=== PATIENT | male | born 1965 | race African-American/Black ===

== ENCOUNTER 2020-03-28 14:54 | Inpatient (IN) | payer OTHER, MEDICAID ==
[~2020-03-28] VITALS: Ht 162.6 cm; Wt 72.4 kg
[~2020-03-28 14:54] MED LIST: AMLO10TA4 PO; ATOR20TA PO; ATOR40TA PO; CLON0.2T PO; DULO60CA6 PO; LABE200T24 PO; LISI20TA PO; OMEP40CA45 PO; TAMS0.4C97 PO
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
[2020-03-28 15:44] LABS: BASO # 0.1 x10^3/uL (0.0-0.2); BASO % 1 % (0-3); EOS % 0 % (0-3); HEMATOCRIT 47.2 % (39.0-53.0); HEMOGLOBIN 16.7 g/dL (13.0-17.5); LYMPH # 1.1 x10^3/uL (1.0-4.8); LYMPH % 16 % (24-48); MEAN CORPUSCULAR HEMOGLOBIN 33 pg (25-35); MEAN CORPUSCULAR HGB CONC 35 g/dL (31-37); MEAN CORPUSCULAR VOLUME 94 fL (79-100); MONO # 0.7 x10^3/uL (0.0-1.1); MONO % 10 % (0-9); NEUT % 73 % (31-73); PLATELET COUNT 243 x10^3/uL (140-400); RED BLOOD COUNT 5.03 x10^6/uL (4.30-5.70); RED CELL DISTRIBUTION WIDTH 13.9 % (11.5-14.5); WHITE BLOOD COUNT 6.8 x10^3/uL (4.0-11.0)
--- NOTE | 2020-03-28 15:56 | RAD ---
CHEST AP ONLY Clinical indications: Seizure. COMPARISON: June 24, 2017. Findings: No acute lung infiltrate or pleural effusion or pulmonary edema or lung mass or pneumothorax is seen. The heart size, pulmonary vasculature, mediastinum and both ranulfo are unremarkable. Old healed right ninth rib fracture is seen. Impression: No acute radiographic abnormality is seen. Electronically signed by: Hugo Bush MD (03/28/2020 3:53 PM) [id number]
--- NOTE | 2020-03-28 15:57 | EKG ---
[facility] [address] [place] [address] Test Date: 2020-03-28 Test Time: 15:36:44 Pat Name: ARTHUR VSAQUEZ Department: Room: Gender: M Ethics Instructor: : 1965 Requested By: RADHA CARDOSO Order Number: [id number] Reading MD: Measurements Intervals [place] Rate: 92 P: 23 PA: 172 QRS: -5 QRSD: 70 T: 28 QT: 380 QTc: 475 Interpretive Statements SINUS RHYTHM LEFTWARD AXIS PROLONGED QT NO SPECIFIC ECG ABNORMALITIES RI6.01 No previous ECG available for comparison
[2020-03-28 15:59] LABS: CALCIUM 9.5 mg/dL (8.5-10.1); CREATININE 1.2 mg/dL (0.7-1.3); GFR 75.8
[2020-03-28 16:00] LABS: POTASSIUM 2.9 mmol/L (3.5-5.1)
[2020-03-28] MEDS ORDERED: MAGNESIUM SULFATE 2GM 50 ML IV ONE (16:15)
[2020-03-28] MEDS ORDERED: IV NORMAL SALINE 1000ML BAG 1,000 ML IV ONE (16:15)
--- NOTE | 2020-03-28 16:23 | RAD ---
CT HEAD WO CONTRAST History:Seizure Comparison: July 20, 2015 Technique: Noncontrast CT imaging was performed of the head. Exposure: One or more of the following individualized dose reduction techniques were utilized for this examination: 1. Automated exposure control 2. Adjustment of the mA and/or kV according to patient size 3. Use of iterative reconstruction technique. Findings: There is no evidence of acute intracranial hemorrhage. There is now large area of encephalomalacia with cortical involvement of the right cerebral hemisphere centered in the frontal parietal lobes although also involvement of the temporal lobe as well as of basal ganglia and right thalamus. There is ex vacuo dilatation of the right lateral ventricle, also some deviation of the septum pellucidum to the right due to volume loss on the right. There is other mild supratentorial involutional change. There is atherosclerotic calcification of the intradural vertebral arteries bilaterally. There is moderate left maxillary sinus mucosal thickening, also some patchy ethmoid air cell as well as sphenoid and right maxillary sinus mucosal thickening. Mastoid air cells are aerated. Impression: 1. There is no evidence of acute intracranial hemorrhage. There is large area of encephalomalacia with cortical involvement of the right cerebral hemisphere, evidence of old infarct, new since 2015 exam. 2. There is paranasal sinus mucosal thickening as stated. Electronically signed by: Scottie Belle MD (03/28/2020 4:19 PM) [id number]
[2020-03-28] MEDS: POTASSIUM CHLORIDE 10MEQ 100 ML IV SCH ×5 (16:33→22:12)
[2020-03-28] MEDS ORDERED: IV NORMAL SALINE 1000ML BAG 1,000 ML IV SCH (17:45)
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
[2020-03-28 19:30] VITALS: BP 163/109
[2020-03-28] MEDS ORDERED: HALOPERIDOL LACTATE 5 MG/ML VIAL. IVP PRN (20:00)
[2020-03-28] MEDS ORDERED: diphenhydrAMINE 50 MG/ML VIAL IVP PRN (20:00)
[2020-03-28] MEDS ORDERED: cloNIDine HCL 0.1 MG TABLET PO PRN (20:00)
[2020-03-28] MEDS: LABETALOL HCL 200 MG TABLET PO SCH (21:00)
[2020-03-28] MEDS: MULTIVIT INFUSN,ADULT 4,VIT K 10 ML, THIAMINE INJ 100 MG, FOLIC ACID INJ 1 MG in IV NOR... IV SCH (21:11)
[2020-03-28] MEDS: cloNIDine HCL 0.2 MG TABLET PO SCH (21:12)
[2020-03-28 22:35] VITALS: BP 114/90
[2020-03-29 03:50] VITALS: BP 98/66
[2020-03-29 07:00] VITALS: BP 120/79
[2020-03-29 08:10] LABS: BASO % 1 % (0-3); EOS # 0.1 x10^3/uL (0.0-0.7); EOS % 1 % (0-3); HEMATOCRIT 41.5 % (39.0-53.0); HEMOGLOBIN 14.8 g/dL (13.0-17.5); LYMPH # 1.6 x10^3/uL (1.0-4.8); LYMPH % 35 % (24-48); MEAN CORPUSCULAR HEMOGLOBIN 34 pg (25-35); MEAN CORPUSCULAR HGB CONC 36 g/dL (31-37); MEAN CORPUSCULAR VOLUME 95 fL (79-100); MONO # 0.6 x10^3/uL (0.0-1.1); MONO % 14 % (0-9); NEUT # 2.3 x10^3/uL (1.8-7.7); NEUT % 49 % (31-73); PLATELET COUNT 213 x10^3/uL (140-400); RED BLOOD COUNT 4.38 x10^6/uL (4.30-5.70); RED CELL DISTRIBUTION WIDTH 14.2 % (11.5-14.5); WHITE BLOOD COUNT 4.7 x10^3/uL (4.0-11.0)
[2020-03-29 08:20] LABS: CALCIUM 8.4 mg/dL (8.5-10.1); CREATININE 1.4 mg/dL (0.7-1.3); GFR 63.4
[2020-03-29 08:23] LABS: POTASSIUM 2.9 mmol/L (3.5-5.1)
--- NOTE | 2020-03-29 08:33 | PDOC ---
[employer] PROGRESS NOTE Date of Service DOS: DATE: 03/29/20 TIME: 08:32 Chief Complaint Chief Complaint Seizures Hypokalemia Hypomagnesemia CVA w/ left hemiparesis leaving him wheelchair-bound and on disability HTN HLD Smoker Heavy ETOH History of Present Illness History of Present Illness Mr Garcia is a 55-year-old male with PMHx CVA w/ left hemiparesis leaving him wheelchair-bound and on disability, HTN, HLD, smoker, heavy ETOH use admitted after having 2 seizures 03/28/2020. He has been worked up at including MRI and EEG studies and has never been placed on anticonvulsants. K 2.9, Mag 1.2, admitted for further care. Little confused today weak on his left side. No shortness of breath or cough no fevers. Labs slightly improved Vitals/I&O Vitals/I&O: Vital Signs Date Time Temp Pulse Resp B/P (MAP) Pulse Ox O2 Delivery O2 Flow Rate FiO2 03/29/20 07:00 97.7 75 16 120/79 (93) 97 Room Air 97.7 I & O 03/28/20 03/28/20 03/29/20 15:00 23:00 07:00 Intake Total 1220 ml 120 ml Output Total 350 ml 150 ml Balance 870 ml -30 ml Physical Exam Lungs: Clear Labs Labs: Laboratory Tests Test 03/28/20 15:34 03/29/20 07:40 White Blood Count 6.8 x10^3/uL (4.0-11.0) 4.7 x10^3/uL (4.0-11.0) Red Blood Count 5.03 x10^6/uL (4.30-5.70) 4.38 x10^6/uL (4.30-5.70) Hemoglobin 16.7 g/dL (13.0-17.5) 14.8 g/dL (13.0-17.5) Hematocrit 47.2 % (39.0-53.0) 41.5 % (39.0-53.0) Mean Corpuscular Volume 94 fL (79-100) 95 fL (79-100) Mean Corpuscular Hemoglobin 33 pg (25-35) 34 pg (25-35) Mean Corpuscular Hemoglobin Concent 35 g/dL (31-37) 36 g/dL (31-37) Red Cell Distribution Width 13.9 % (11.5-14.5) 14.2 % (11.5-14.5) Platelet Count 243 x10^3/uL (140-400) 213 x10^3/uL (140-400) Neutrophils (%) (Auto) 73 % (31-73) 49 % (31-73) Lymphocytes (%) (Auto) 16 % (24-48) 35 % (24-48) Monocytes (%) (Auto) 10 % (0-9) 14 % (0-9) Eosinophils (%) (Auto) 0 % (0-3) 1 % (0-3) Basophils (%) (Auto) 1 % (0-3) 1 % (0-3) Neutrophils # (Auto) 5.0 x10^3/uL (1.8-7.7) 2.3 x10^3/uL (1.8-7.7) Lymphocytes # (Auto) 1.1 x10^3/uL (1.0-4.8) 1.6 x10^3/uL (1.0-4.8) Monocytes # (Auto) 0.7 x10^3/uL (0.0-1.1) 0.6 x10^3/uL (0.0-1.1) Eosinophils # (Auto) 0.0 x10^3/uL (0.0-0.7) 0.1 x10^3/uL (0.0-0.7) Basophils # (Auto) 0.1 x10^3/uL (0.0-0.2) 0.0 x10^3/uL (0.0-0.2) Sodium Level 134 mmol/L (136-145) 139 mmol/L (136-145) Potassium Level 2.9 mmol/L (3.5-5.1) 2.9 mmol/L (3.5-5.1) Chloride Level 95 mmol/L (98-107) 102 mmol/L (98-107) Carbon Dioxide Level 29 mmol/L (21-32) 30 mmol/L (21-32) Anion Gap 10 (6-14) 7 (6-14) Blood Urea Nitrogen 13 mg/dL (8-26) 13 mg/dL (8-26) Creatinine 1.2 mg/dL (0.7-1.3) 1.4 mg/dL (0.7-1.3) Estimated GFR (Cockcroft-Gault) 75.8 63.4 Glucose Level 83 mg/dL (70-99) 95 mg/dL (70-99) Calcium Level 9.5 mg/dL (8.5-10.1) 8.4 mg/dL (8.5-10.1) Magnesium Level 1.2 mg/dL (1.8-2.4) 1.7 mg/dL (1.8-2.4) Assessment and Plan Assessmemt and Plan Problems Medical Problems: (1) Hypokalemia Status: Acute (2) Seizure disorder Status: Acute Comment Review of Relevant I have reviewed the following items neeliam (where applicable) has been applied. Medications: Current Medications Medications (Trade) Dose Ordered Sig/Mendez Route PRN Reason Start Time Stop Time Status Last Admin Dose Admin Potassium Chloride/Water 100 ml @ 100 mls/hr Q1H IV 03/28/20 16:30 03/28/20 22:29 DC 03/28/20 20:30 Sodium Chloride 1,000 ml @ 1,000 mls/hr 1X ONCE IV 03/28/20 16:15 03/28/20 17:14 DC 03/28/20 16:27 Magnesium Sulfate 50 ml @ 50 mls/hr 1X ONCE IV 03/28/20 16:15 03/28/20 17:14 DC 03/28/20 16:29 Sodium Chloride 1,000 ml @ 30 mls/hr Q24H IV 03/28/20 17:45 03/28/20 18:04 Clonidine HCl (Catapres) 0.2 mg TID PO 03/28/20 21:00 03/28/20 21:12 Labetalol HCl (Trandate) 200 mg BID PO 03/28/20 21:00 03/28/20 21:00 Multivitamins 10 ml/Thiamine HCl 100 mg/Folic Acid 1 mg/Sodium Chloride 1,011.2 ml @ 100 mls/ hr DAILY IV 03/28/20 21:00 04/01/20 19:07 03/28/20 21:11 Justicifation of Admission Dx: Justifications for Admission: Justification of Admission Dx: N/A Chronic Renal Failure: Electrolyte Abnormality RIFFEL,CHRISTOPHER S MD Mar 29, 2020 08:33
[2020-03-29] MEDS ORDERED: POTASSIUM CHLORIDE 20 MEQ TABLET.ER. PO ONE (09:00)
[2020-03-29] MEDS: MULTIVIT INFUSN,ADULT 4,VIT K 10 ML, THIAMINE INJ 100 MG, FOLIC ACID INJ 1 MG in IV NOR... IV SCH (09:00)
[2020-03-29] MEDS ORDERED: MAGNESIUM SULFATE 2GM 50 ML IV ONE (09:00)
[2020-03-29] MEDS: POTASSIUM CHLORIDE 10MEQ 100 ML IV SCH ×3 (09:01→11:39)
[2020-03-29] MEDS: amLODIPine BESYLATE 10 MG TABLET PO SCH (09:02)
[2020-03-29] MEDS: TAMSULOSIN 0.4 MG CAP.ER.24H. PO SCH (09:02)
[2020-03-29] MEDS: PANTOPRAZOLE 40 MG TABLET.DR. PO SCH (09:03)
[2020-03-29] MEDS: cloNIDine HCL 0.2 MG TABLET PO SCH ×3 (09:03→21:00)
[2020-03-29] MEDS: DULoxetine HCL 30 MG CAPSULE.DR PO SCH (09:03)
[2020-03-29] MEDS: LABETALOL HCL 200 MG TABLET PO SCH ×2 (10:20→21:02)
[2020-03-29 10:56] VITALS: BP 116/79
--- NOTE | 2020-03-29 11:31 | NUR ---
SS following for discharge planning. SS reviewed pt chart and discussed with pt RN. Pt is from home and is currently on room air. Pt has history of CVA with left sided residual. Per RN, PT/OT may be needed to assess mobility. SS will continue to follow for discharge planning.
--- NOTE | 2020-03-29 13:38 | PDOC2 ---
NEUROLOGY CONSULT Date of Service DOS: DATE: 03/29/20 TIME: 13:32 Reason for Consult Reason for Consult: Seizure Referring Physician Referring Physician: Dr. Robledo Source Source: Caregiver (Daughter), Chart review, Patient History of Present Illness History of Present Illness The patient is a 55-year-old right-handed male who had 2 seizures yesterday. 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 He says he drinks a beer or 2 at a time, no more. He has been worked up at including MRI and EEG studies and has never been placed on anticonvulsants. His last seizure before yesterday was about 8 weeks ago and he refused transport then. He does have a history of stroke with left hemiparesis leaving him wheelchair-bound and on disability. There is no history of head injury. Past Medical History Cardiovascular: HTN, Hyperlipidemia, Other (Heart murmur) CENTRAL NERVOUS SYSTEM: CVA, Seizure Past Surgical History Past Surgical History: Total knee replacement (Right) Family History Family History: Cancer Social History Social History Single, a couple beers at a time, occasional tobacco, unemployed, disabled Current Medications Current Medications Current Medications Potassium Chloride/Water 100 ml @ 100 mls/hr Q1H IV Last administered on at 09:01; Start 03/28/20 at 16:30; Stop 03/28/20 at 22:29; Status DC Sodium Chloride 1,000 ml @ 1,000 mls/hr 1X ONCE IV Last administered on 03/28/20at 16:27; Start 03/28/20 at 16:15; Stop 03/28/20 at 17:14; Status DC Magnesium Sulfate 50 ml @ 50 mls/hr 1X ONCE IV Last administered on 03/28/20at 16:29; Start 03/28/20 at 16:15; Stop 03/28/20 at 17:14; Status DC Sodium Chloride 1,000 ml @ 30 mls/hr Q24H IV Last administered on 03/28/20at 18:04; Start 03/28/20 at 17:45 Amlodipine Besylate (Norvasc) 10 mg DAILY PO Last administered on 03/29/20at 09:02; Start 03/29/20 at 09:00 Atorvastatin Calcium (Lipitor) 40 mg QHS PO ; Start 03/29/20 at 21:00 Clonidine HCl (Catapres) 0.2 mg TID PO Last administered on 03/29/20at 09:03; Start 03/28/20 at 21:00 Labetalol HCl (Trandate) 200 mg BID PO Last administered on 03/29/20at 10:20; Start 03/28/20 at 21:00 Tamsulosin HCl (Flomax) 0.4 mg DAILY PO Last administered on 03/29/20at 09:02; Start 03/29/20 at 09:00 Duloxetine HCl (Cymbalta) 60 mg DAILY PO Last administered on 03/29/20at 09:03; Start 03/29/20 at 09:00 Pantoprazole Sodium (Protonix) 40 mg DAILYAC PO Last administered on 03/29/20at 09:03; Start 03/29/20 at 07:30 Multivitamins 10 ml/Thiamine HCl 100 mg/Folic Acid 1 mg/Sodium Chloride 1,011.2 ml @ 100 mls/ hr DAILY IV Last administered on 03/29/20at 09:00; Start 03/28/20 at 21:00; Stop 04/01/20 at 19:07 Lorazepam (Ativan Inj) 2 mg PRN Q1HR PRN IV For CIWA 8-14; Start 03/28/20 at 20:00 Lorazepam (Ativan Inj) 4 mg PRN Q1HR PRN IV For CIWA 15 or greater; Start 03/28/20 at 20:00 Haloperidol Lactate (Haldol Inj) 5 mg PRN Q4HRS PRN IVP Hallucinatns,Confusn,Delirium; Start 03/28/20 at 20:00 Diphenhydramine HCl (Benadryl) 25 mg PRN Q15MIN PRN IVP EPS symptoms 2'Haldol admin; Start 03/28/20 at 20:00 Clonidine HCl (Catapres) 0.1 mg PRN Q1HR PRN PO SBP > 180 or DBP > 100, MRX3; Start 03/28/20 at 20:00 Potassium Chloride/Water 100 ml @ 100 mls/hr Q1H IV Last administered on 03/29/20at 11:39; Start 03/29/20 at 09:00; Stop 03/29/20 at 10:59; Status DC Magnesium Sulfate 50 ml @ 25 mls/hr 1X ONCE IV ; Start 03/29/20 at 09:00; Stop 03/29/20 at 10:59; Status DC Potassium Chloride (Klor-Con) 40 meq 1X ONCE PO Last administered on 03/29/20at 09:06; Start 03/29/20 at 09:00; Stop 03/29/20 at 09:01; Status DC Active Scripts Active Trandate (Labetalol Hcl) 200 Mg Tablet 200 Mg PO BID Clonidine Hcl 0.2 Mg Tablet 0.2 Mg PO TID Norvasc (Amlodipine Besylate) 10 Mg Tablet 10 Mg PO DAILY Reported Flomax (Tamsulosin Hcl) 0.4 Mg Cap.er.24h 1 Cap PO DAILY Cymbalta (Duloxetine Hcl) 60 Mg Capsule.dr 1 Cap PO DAILY Lipitor (Atorvastatin Calcium) 40 Mg Tablet 1 Tab PO DAILY Omeprazole 40 Mg Capsule.dr 1 Cap PO DAILY Allergies Allergies: Coded Allergies: lisinopril (Verified Allergy, Severe, ANGIOEDEMA, 08/04/15) codeine (Verified Allergy, Intermediate, hives, 02/26/15) ROS Review of System Negative for fever, chills, weight loss, shortness of breath, chest pain, indigestion, hematochezia, melena, and dysuria. Full 14-point review of systems is negative. Physical Exam Physical Examination General: Well-developed, well-nourished black male in no acute distress HEENT: Normocephalic andatraumatic.Temporal arteriespulsatile and nontender. Neck: Supple without bruit, no meningismus Musculoskeletal: Stability:see neurologic. Gait exam:see neurologic. Tone:see neurologic.Strength:see neurologic. Neurological: Mental Status:intact, orientation, memory, attention span/concentration, language, fund of knowledge normal. Cranial Nerves:Pupils equal and reactive to light, extraocular movements areintact, visual jade are full to confrontation. Facial sensation is normal. There is a left central facial weakness. Vestibulo-ocular reflex is intact. Palate elevates and tongue protrudes in midline. All other cranial related problems are negative except as mentioned before.Reflexes:2+ and symmetric with flexor plantar responses. Motor:2-3/5 spastic left hemiparesis, normal strength and tone on right. Coordination:Finger-nose finger and [id number] testing are normal on right. Rapid alternating movements and fine finger movements are intact on right. Gait:Not tested. Sensory:Normal pinprick, vibration, light touch, pr oprioception. Vitals VITALS Vital Signs Date Time Temp Pulse Resp B/P (MAP) Pulse Ox O2 Delivery O2 Flow Rate FiO2 03/29/20 10:56 97.5 66 16 116/79 (91) 97 Room Air 97.5 Labs Labs Laboratory Tests Test 03/28/20 15:34 03/29/20 07:40 White Blood Count 6.8 x10^3/uL (4.0-11.0) 4.7 x10^3/uL (4.0-11.0) Red Blood Count 5.03 x10^6/uL (4.30-5.70) 4.38 x10^6/uL (4.30-5.70) Hemoglobin 16.7 g/dL (13.0-17.5) 14.8 g/dL (13.0-17.5) Hematocrit 47.2 % (39.0-53.0) 41.5 % (39.0-53.0) Mean Corpuscular Volume 94 fL (79-100) 95 fL (79-100) Mean Corpuscular Hemoglobin 33 pg (25-35) 34 pg (25-35) Mean Corpuscular Hemoglobin Concent 35 g/dL (31-37) 36 g/dL (31-37) Red Cell Distribution Width 13.9 % (11.5-14.5) 14.2 % (11.5-14.5) Platelet Count 243 x10^3/uL (140-400) 213 x10^3/uL (140-400) Neutrophils (%) (Auto) 73 % (31-73) 49 % (31-73) Lymphocytes (%) (Auto) 16 % (24-48) 35 % (24-48) Monocytes (%) (Auto) 10 % (0-9) 14 % (0-9) Eosinophils (%) (Auto) 0 % (0-3) 1 % (0-3) Basophils (%) (Auto) 1 % (0-3) 1 % (0-3) Neutrophils # (Auto) 5.0 x10^3/uL (1.8-7.7) 2.3 x10^3/uL (1.8-7.7) Lymphocytes # (Auto) 1.1 x10^3/uL (1.0-4.8) 1.6 x10^3/uL (1.0-4.8) Monocytes # (Auto) 0.7 x10^3/uL (0.0-1.1) 0.6 x10^3/uL (0.0-1.1) Eosinophils # (Auto) 0.0 x10^3/uL (0.0-0.7) 0.1 x10^3/uL (0.0-0.7) Basophils # (Auto) 0.1 x10^3/uL (0.0-0.2) 0.0 x10^3/uL (0.0-0.2) Sodium Level 134 mmol/L (136-145) 139 mmol/L (136-145) Potassium Level 2.9 mmol/L (3.5-5.1) 2.9 mmol/L (3.5-5.1) Chloride Level 95 mmol/L (98-107) 102 mmol/L (98-107) Carbon Dioxide Level 29 mmol/L (21-32) 30 mmol/L (21-32) Anion Gap 10 (6-14) 7 (6-14) Blood Urea Nitrogen 13 mg/dL (8-26) 13 mg/dL (8-26) Creatinine 1.2 mg/dL (0.7-1.3) 1.4 mg/dL (0.7-1.3) Estimated GFR (Cockcroft-Gault) 75.8 63.4 Glucose Level 83 mg/dL (70-99) 95 mg/dL (70-99) Calcium Level 9.5 mg/dL (8.5-10.1) 8.4 mg/dL (8.5-10.1) Magnesium Level 1.2 mg/dL (1.8-2.4) 1.7 mg/dL (1.8-2.4) Laboratory Tests Test 03/28/20 15:34 03/29/20 07:40 White Blood Count 6.8 x10^3/uL (4.0-11.0) 4.7 x10^3/uL (4.0-11.0) Red Blood Count 5.03 x10^6/uL (4.30-5.70) 4.38 x10^6/uL (4.30-5.70) Hemoglobin 16.7 g/dL (13.0-17.5) 14.8 g/dL (13.0-17.5) Hematocrit 47.2 % (39.0-53.0) 41.5 % (39.0-53.0) Mean Corpuscular Volume 94 fL (79-100) 95 fL (79-100) Mean Corpuscular Hemoglobin 33 pg (25-35) 34 pg (25-35) Mean Corpuscular Hemoglobin Concent 35 g/dL (31-37) 36 g/dL (31-37) Red Cell Distribution Width 13.9 % (11.5-14.5) 14.2 % (11.5-14.5) Platelet Count 243 x10^3/uL (140-400) 213 x10^3/uL (140-400) Neutrophils (%) (Auto) 73 % (31-73) 49 % (31-73) Lymphocytes (%) (Auto) 16 % (24-48) 35 % (24-48) Monocytes (%) (Auto) 10 % (0-9) 14 % (0-9) Eosinophils (%) (Auto) 0 % (0-3) 1 % (0-3) Basophils (%) (Auto) 1 % (0-3) 1 % (0-3) Neutrophils # (Auto) 5.0 x10^3/uL (1.8-7.7) 2.3 x10^3/uL (1.8-7.7) Lymphocytes # (Auto) 1.1 x10^3/uL (1.0-4.8) 1.6 x10^3/uL (1.0-4.8) Monocytes # (Auto) 0.7 x10^3/uL (0.0-1.1) 0.6 x10^3/uL (0.0-1.1) Eosinophils # (Auto) 0.0 x10^3/uL (0.0-0.7) 0.1 x10^3/uL (0.0-0.7) Basophils # (Auto) 0.1 x10^3/uL (0.0-0.2) 0.0 x10^3/uL (0.0-0.2) Sodium Level 134 mmol/L (136-145) 139 mmol/L (136-145) Potassium Level 2.9 mmol/L (3.5-5.1) 2.9 mmol/L (3.5-5.1) Chloride Level 95 mmol/L (98-107) 102 mmol/L (98-107) Carbon Dioxide Level 29 mmol/L (21-32) 30 mmol/L (21-32) Anion Gap 10 (6-14) 7 (6-14) Blood Urea Nitrogen 13 mg/dL (8-26) 13 mg/dL (8-26) Creatinine 1.2 mg/dL (0.7-1.3) 1.4 mg/dL (0.7-1.3) Estimated GFR (Cockcroft-Gault) 75.8 63.4 Glucose Level 83 mg/dL (70-99) 95 mg/dL (70-99) Calcium Level 9.5 mg/dL (8.5-10.1) 8.4 mg/dL (8.5-10.1) Magnesium Level 1.2 mg/dL (1.8-2.4) 1.7 mg/dL (1.8-2.4) Images Images CT HEAD WO CONTRAST History:Seizure Comparison: July 20, 2015 Technique: Noncontrast CT imaging was performed of the head. Exposure: One or more of the following individualized dose reduction techniques were utilized for this examination: 1. Automated exposure control 2. Adjustment of the mA and/or kV according to patient size 3. Use of iterative reconstruction technique. Findings: There is no evidence of acute intracranial hemorrhage. There is now large area of encephalomalacia with cortical involvement of the right cerebral hemisphere centered in the frontal parietal lobes although also involvement of the temporal lobe as well as of basal ganglia and right thalamus. There is ex vacuo dilatation of the right lateral ventricle, also some deviation of the septum pellucidum to the right due to volume loss on the right. There is other mild supratentorial involutional change. There is atherosclerotic calcification of the intradural vertebral arteries bilaterally. There is moderate left maxillary sinus mucosal thickening, also some patchy ethmoid air cell as well as sphenoid and right maxillary sinus mucosal thickening. Mastoid air cells are aerated. Impression: 1. There is no evidence of acute intracranial hemorrhage. There is large area of encephalomalacia with cortical involvement of the right cerebral hemisphere, evidence of old infarct, new since 2015 exam. 2. There is paranasal sinus mucosal thickening as stated. Assessment/Plan Assessment/Plan Impression: Seizures likely related to alcohol, this time he also has some hypokalemia and hypomagnesemia which contribute. 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 Patient at this time refuses to start an anticonvulsant I see no need to repeat EEG or MRI studies which were already done in the past at . Discharge when electrolytes are stable. I advised alcohol abstinence Patient informed he cannot drive for 6 months after a seizure, he does not drive anyway. Thank you for letting me help with the patient's care. FERMIN ARGUETA MD Mar 29, 2020 13:38
[2020-03-29 14:12] LABS: CALCIUM 8.1 mg/dL (8.5-10.1); CREATININE 1.2 mg/dL (0.7-1.3); GFR 75.8; POTASSIUM 3.8 mmol/L (3.5-5.1)
[2020-03-29 14:58] VITALS: BP 113/77
[2020-03-29 19:00] VITALS: BP 121/86
[2020-03-29] MEDS ORDERED: ATORVASTATIN CALCIUM 40 MG TABLET. PO SCH (21:00)
[2020-03-29 23:00] VITALS: BP 138/87
[2020-03-30 03:00] VITALS: BP 137/97
[2020-03-30 05:48] LABS: CALCIUM 8.2 mg/dL (8.5-10.1); CREATININE 1.1 mg/dL (0.7-1.3); GFR 83.8; MAGNESIUM 1.5 mg/dL (1.8-2.4); POTASSIUM 3.3 mmol/L (3.5-5.1)
[2020-03-30 07:00] VITALS: BP 116/88
--- NOTE | 2020-03-30 07:34 | PDOC ---
[facility] PROGRESS NOTE Date of Service DOS: DATE: 03/30/20 TIME: 07:34 Chief Complaint Chief Complaint Seizures Hypokalemia Hypomagnesemia CVA w/ left hemiparesis leaving him wheelchair-bound and on disability HTN HLD Smoker Heavy ETOH History of Present Illness History of Present Illness Mr Garcia is a 55-year-old male with PMHx CVA w/ left hemiparesis leaving him wheelchair-bound and on disability, HTN, HLD, smoker, heavy ETOH use admitted after having 2 seizures 03/28/2020. He has been worked up at including MRI and EEG studies and has never been placed on anticonvulsants. K 2.9, Mag 1.2, admitted for further care. 03/29: Little confused today weak on his left side. No shortness of breath or cough no fevers. Labs slightly improved. No further seizures K improved to 3.3, magnesium still low at 1.5. His strength is improved. He notes he is going to cut back on his drinking as he is started drinking due to a friend's birthday republican. He wishes to go home with [facility] which he states was set up by [facility] previously. Vitals/I&O Vitals/I&O: Vital Signs Date Time Temp Pulse Resp B/P (MAP) Pulse Ox O2 Delivery O2 Flow Rate FiO2 03/30/20 03:00 97.7 63 18 137/97 (110) 95 Room Air 97.7 I & O 03/29/20 03/29/20 03/30/20 15:00 23:00 07:00 Intake Total 350 ml 200 ml Output Total 100 ml 350 ml 300 ml Balance 250 ml -150 ml -300 ml Physical Exam General: Alert, Cooperative Heart: Regular rate, Normal S1, Normal S2 Lungs: Clear Abdomen: Normal bowel sounds, Soft Extremities: No clubbing, No cyanosis Skin: No rashes, No breakdown Labs Labs: Laboratory Tests Test 03/29/20 07:40 03/29/20 13:30 03/30/20 04:00 White Blood Count 4.7 x10^3/uL (4.0-11.0) Red Blood Count 4.38 x10^6/uL (4.30-5.70) Hemoglobin 14.8 g/dL (13.0-17.5) Hematocrit 41.5 % (39.0-53.0) Mean Corpuscular Volume 95 fL (79-100) Mean Corpuscular Hemoglobin 34 pg (25-35) Mean Corpuscular Hemoglobin Concent 36 g/dL (31-37) Red Cell Distribution Width 14.2 % (11.5-14.5) Platelet Count 213 x10^3/uL (140-400) Neutrophils (%) (Auto) 49 % (31-73) Lymphocytes (%) (Auto) 35 % (24-48) Monocytes (%) (Auto) 14 % (0-9) Eosinophils (%) (Auto) 1 % (0-3) Basophils (%) (Auto) 1 % (0-3) Neutrophils # (Auto) 2.3 x10^3/uL (1.8-7.7) Lymphocytes # (Auto) 1.6 x10^3/uL (1.0-4.8) Monocytes # (Auto) 0.6 x10^3/uL (0.0-1.1) Eosinophils # (Auto) 0.1 x10^3/uL (0.0-0.7) Basophils # (Auto) 0.0 x10^3/uL (0.0-0.2) Sodium Level 139 mmol/L (136-145) 135 mmol/L (136-145) 136 mmol/L (136-145) Potassium Level 2.9 mmol/L (3.5-5.1) 3.8 mmol/L (3.5-5.1) 3.3 mmol/L (3.5-5.1) Chloride Level 102 mmol/L (98-107) 103 mmol/L (98-107) 101 mmol/L (98-107) Carbon Dioxide Level 30 mmol/L (21-32) 25 mmol/L (21-32) 26 mmol/L (21-32) Anion Gap 7 (6-14) 7 (6-14) 9 (6-14) Blood Urea Nitrogen 13 mg/dL (8-26) 12 mg/dL (8-26) 9 mg/dL (8-26) Creatinine 1.4 mg/dL (0.7-1.3) 1.2 mg/dL (0.7-1.3) 1.1 mg/dL (0.7-1.3) Estimated GFR (Cockcroft-Gault) 63.4 75.8 83.8 Glucose Level 95 mg/dL (70-99) 144 mg/dL (70-99) 94 mg/dL (70-99) Calcium Level 8.4 mg/dL (8.5-10.1) 8.1 mg/dL (8.5-10.1) 8.2 mg/dL (8.5-10.1) Magnesium Level 1.7 mg/dL (1.8-2.4) 1.5 mg/dL (1.8-2.4) Assessment and Plan Assessmemt and Plan Problems Medical Problems: (1) Hypokalemia Status: Acute (2) Seizure disorder Status: Acute Comment Review of Relevant I have reviewed the following items neelima (where applicable) has been applied. Medications: Current Medications Medications (Trade) Dose Ordered Sig/Mendez Route PRN Reason Start Time Stop Time Status Last Admin Dose Admin Amlodipine Besylate (Norvasc) 10 mg DAILY PO 03/29/20 09:00 03/29/20 09:02 Atorvastatin Calcium (Lipitor) 40 mg QHS PO 03/29/20 21:00 03/29/20 21:02 Tamsulosin HCl (Flomax) 0.4 mg DAILY PO 03/29/20 09:00 03/29/20 09:02 Duloxetine HCl (Cymbalta) 60 mg DAILY PO 03/29/20 09:00 03/29/20 09:03 Potassium Chloride/Water 100 ml @ 100 mls/hr Q1H IV 03/29/20 09:00 03/29/20 10:59 DC 03/29/20 11:39 Magnesium Sulfate 50 ml @ 25 mls/hr 1X ONCE IV 03/29/20 09:00 03/29/20 10:59 DC 03/29/20 13:40 Potassium Chloride (Klor-Con) 40 meq 1X ONCE PO 03/29/20 09:00 03/29/20 09:01 DC 03/29/20 09:06 Justicifation of Admission Dx: Justifications for Admission: Justification of Admission Dx: N/A Chronic Renal Failure: Electrolyte Abnormality DEBI TELLES MD Mar 30, 2020 07:34
[2020-03-30] MEDS ORDERED: ACETAMINOPHEN 325 MG TABLET. PO PRN (07:45)
[2020-03-30] MEDS ORDERED: KETOROLAC 15 MG/ML VIAL. IVP ONE (08:00)
[2020-03-30] MEDS ORDERED: MAGNESIUM SULFATE 4GM 100 ML IV ONE (08:00)
[2020-03-30] MEDS ORDERED: POTASSIUM CHLORIDE 20 MEQ TABLET.ER. PO ONE (08:00)
[2020-03-30] MEDS: LABETALOL HCL 200 MG TABLET PO SCH (08:16)
[2020-03-30] MEDS: DULoxetine HCL 30 MG CAPSULE.DR PO SCH (08:16)
[2020-03-30] MEDS: cloNIDine HCL 0.2 MG TABLET PO SCH (08:17)
[2020-03-30] MEDS: TAMSULOSIN 0.4 MG CAP.ER.24H. PO SCH (08:17)
[2020-03-30] MEDS: amLODIPine BESYLATE 10 MG TABLET PO SCH (08:17)
[2020-03-30] MEDS: PANTOPRAZOLE 40 MG TABLET.DR. PO SCH (08:17)
--- NOTE | 2020-03-30 08:43 | PDOC ---
PROGRESS NOTES Assessment Problems Medical Problems: (1) Hypokalemia Status: Acute (2) Seizure disorder Status: Acute Seizures likely related to alcohol, this time he also has some hypokalemia and hypomagnesemia which contribute. 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 Alcohol abstinence Okay for discharge I stopped the banana bag Subjective No complaints, feels better, wants to go home Objective Vital Signs Date Time Temp Pulse Resp B/P (MAP) Pulse Ox O2 Delivery O2 Flow Rate FiO2 03/30/20 08:17 85 03/30/20 07:00 97.4 20 116/88 (97) 95 Room Air 97.4 Intake and Output 03/30/20 07:00 Intake Total 550 ml Output Total 750 ml Balance -200 ml Intake Oral 550 ml Output Urine Total 750 ml PHYSICAL EXAM Alert. Oriented to time, place and person. PERRL. EOMI. CN: Left central facial weakness. Muscle tone: Increased on the left, normal on right Muscle strength: 2-3/5 spastic left hemiparesis, normal strength and tone on right DTR: 2+ Plantar reflex: flexor Gait: not examined in bed. Sensory exam: no abnormal findings. No cerebellar signs elicited. Review of Relevant I have reviewed the following items neelima (where applicable) has been applied. Labs Laboratory Tests Test 03/28/20 15:34 03/29/20 07:40 03/29/20 13:30 03/30/20 04:00 White Blood Count 6.8 x10^3/uL (4.0-11.0) 4.7 x10^3/uL (4.0-11.0) Red Blood Count 5.03 x10^6/uL (4.30-5.70) 4.38 x10^6/uL (4.30-5.70) Hemoglobin 16.7 g/dL (13.0-17.5) 14.8 g/dL (13.0-17.5) Hematocrit 47.2 % (39.0-53.0) 41.5 % (39.0-53.0) Mean Corpuscular Volume 94 fL (79-100) 95 fL (79-100) Mean Corpuscular Hemoglobin 33 pg (25-35) 34 pg (25-35) Mean Corpuscular Hemoglobin Concent 35 g/dL (31-37) 36 g/dL (31-37) Red Cell Distribution Width 13.9 % (11.5-14.5) 14.2 % (11.5-14.5) Platelet Count 243 x10^3/uL (140-400) 213 x10^3/uL (140-400) Neutrophils (%) (Auto) 73 % (31-73) 49 % (31-73) Lymphocytes (%) (Auto) 16 % (24-48) 35 % (24-48) Monocytes (%) (Auto) 10 % (0-9) 14 % (0-9) Eosinophils (%) (Auto) 0 % (0-3) 1 % (0-3) Basophils (%) (Auto) 1 % (0-3) 1 % (0-3) Neutrophils # (Auto) 5.0 x10^3/uL (1.8-7.7) 2.3 x10^3/uL (1.8-7.7) Lymphocytes # (Auto) 1.1 x10^3/uL (1.0-4.8) 1.6 x10^3/uL (1.0-4.8) Monocytes # (Auto) 0.7 x10^3/uL (0.0-1.1) 0.6 x10^3/uL (0.0-1.1) Eosinophils # (Auto) 0.0 x10^3/uL (0.0-0.7) 0.1 x10^3/uL (0.0-0.7) Basophils # (Auto) 0.1 x10^3/uL (0.0-0.2) 0.0 x10^3/uL (0.0-0.2) Sodium Level 134 mmol/L (136-145) 139 mmol/L (136-145) 135 mmol/L (136-145) 136 mmol/L (136-145) Potassium Level 2.9 mmol/L (3.5-5.1) 2.9 mmol/L (3.5-5.1) 3.8 mmol/L (3.5-5.1) 3.3 mmol/L (3.5-5.1) Chloride Level 95 mmol/L (98-107) 102 mmol/L (98-107) 103 mmol/L (98-107) 101 mmol/L (98-107) Carbon Dioxide Level 29 mmol/L (21-32) 30 mmol/L (21-32) 25 mmol/L (21-32) 26 mmol/L (21-32) Anion Gap 10 (6-14) 7 (6-14) 7 (6-14) 9 (6-14) Blood Urea Nitrogen 13 mg/dL (8-26) 13 mg/dL (8-26) 12 mg/dL (8-26) 9 mg/dL (8-26) Creatinine 1.2 mg/dL (0.7-1.3) 1.4 mg/dL (0.7-1.3) 1.2 mg/dL (0.7-1.3) 1.1 mg/dL (0.7-1.3) Estimated GFR (Cockcroft-Gault) 75.8 63.4 75.8 83.8 Glucose Level 83 mg/dL (70-99) 95 mg/dL (70-99) 144 mg/dL (70-99) 94 mg/dL (70-99) Calcium Level 9.5 mg/dL (8.5-10.1) 8.4 mg/dL (8.5-10.1) 8.1 mg/dL (8.5-10.1) 8.2 mg/dL (8.5-10.1) Magnesium Level 1.2 mg/dL (1.8-2.4) 1.7 mg/dL (1.8-2.4) 1.5 mg/dL (1.8-2.4) Laboratory Tests Test 03/29/20 13:30 03/30/20 04:00 Sodium Level 135 mmol/L (136-145) 136 mmol/L (136-145) Potassium Level 3.8 mmol/L (3.5-5.1) 3.3 mmol/L (3.5-5.1) Chloride Level 103 mmol/L (98-107) 101 mmol/L (98-107) Carbon Dioxide Level 25 mmol/L (21-32) 26 mmol/L (21-32) Anion Gap 7 (6-14) 9 (6-14) Blood Urea Nitrogen 12 mg/dL (8-26) 9 mg/dL (8-26) Creatinine 1.2 mg/dL (0.7-1.3) 1.1 mg/dL (0.7-1.3) Estimated GFR (Cockcroft-Gault) 75.8 83.8 Glucose Level 144 mg/dL (70-99) 94 mg/dL (70-99) Calcium Level 8.1 mg/dL (8.5-10.1) 8.2 mg/dL (8.5-10.1) Magnesium Level 1.5 mg/dL (1.8-2.4) Medications Current Medications Potassium Chloride/Water 100 ml @ 100 mls/hr Q1H IV Last administered on 03/29/20 09:01; Start 03/28/20 at 16:30; Stop 03/28/20 at 22:29; Status DC Sodium Chloride 1,000 ml @ 1,000 mls/hr 1X ONCE IV Last administered on 03/28/20at 16:27; Start 03/28/20 at 16:15; Stop 03/28/20 at 17:14; Status DC Magnesium Sulfate 50 ml @ 50 mls/hr 1X ONCE IV Last administered on 03/28/20at 16:29; Start 03/28/20 at 16:15; Stop 03/28/20 at 17:14; Status DC Sodium Chloride 1,000 ml @ 30 mls/hr Q24H IV Last administered on 03/28/20at 18:04; Start 03/28/20 at 17:45; Stop 03/29/20 at 18:03; Status DC Amlodipine Besylate (Norvasc) 10 mg DAILY PO Last administered on 03/30/20 08:17; Start 03/29/20 at 09:00 Atorvastatin Calcium (Lipitor) 40 mg QHS PO Last administered on 03/29/20 21:02; Start 03/29/20 at 21:00 Clonidine HCl (Catapres) 0.2 mg TID PO Last administered on 03/30/20 08:17; Start 03/28/20 at 21:00 Labetalol HCl (Trandate) 200 mg BID PO Last administered on 03/30/20at 08:16; Start 03/28/20 at 21:00 Tamsulosin HCl (Flomax) 0.4 mg DAILY PO Last administered on 03/30/20at 08:17; Start 03/29/20 at 09:00 Duloxetine HCl (Cymbalta) 60 mg DAILY PO Last administered on 03/30/20at 08:16; Start 03/29/20 at 09:00 Pantoprazole Sodium (Protonix) 40 mg DAILYAC PO Last administered on 03/30/20at 08:17; Start 03/29/20 at 07:30 Multivitamins 10 ml/Thiamine HCl 100 mg/Folic Acid 1 mg/Sodium Chloride 1,011.2 ml @ 100 mls/ hr DAILY IV Last administered on 03/29/20at 09:00; Start 03/28/20 at 21:00; Stop 04/01/20 at 19:07 Lorazepam (Ativan Inj) 2 mg PRN Q1HR PRN IV For CIWA 8-14; Start 03/28/20 at 20:00 Lorazepam (Ativan Inj) 4 mg PRN Q1HR PRN IV For CIWA 15 or greater; Start 03/28/20 at 20:00 Haloperidol Lactate (Haldol Inj) 5 mg PRN Q4HRS PRN IVP Hallucinatns,Confusn,Delirium; Start 03/28/20 at 20:00 Diphenhydramine HCl (Benadryl) 25 mg PRN Q15MIN PRN IVP EPS symptoms 2'Haldol admin; Start 03/28/20 at 20:00 Clonidine HCl (Catapres) 0.1 mg PRN Q1HR PRN PO SBP > 180 or DBP > 100, MRX3 Last administered on 03/29/20at 21:02; Start 03/28/20 at 20:00 Potassium Chloride/Water 100 ml @ 100 mls/hr Q1H IV Last administered on 03/29/20at 11:39; Start 03/29/20 at 09:00; Stop 03/29/20 at 10:59; Status DC Magnesium Sulfate 50 ml @ 25 mls/hr 1X ONCE IV Last administered on 03/29/20at 13:40; Start 03/29/20 at 09:00; Stop 03/29/20 at 10:59; Status DC Potassium Chloride (Klor-Con) 40 meq 1X ONCE PO Last administered on 03/29/20at 09:06; Start 03/29/20 at 09:00; Stop 03/29/20 at 09:01; Status DC Acetaminophen (Tylenol) 650 mg PRN Q6HRS PRN PO MILD PAIN / TEMP > 100.3'F; Start 03/30/20 at 07:45 Ketorolac Tromethamine (Toradol 15mg Vial) 15 mg 1X ONCE IVP Last administered on 03/30/20at 08:18; Start 03/30/20 at 08:00; Stop 03/30/20 at 08:01; Status DC Magnesium Sulfate 100 ml @ 25 mls/hr 1X ONCE IV Last administered on 03/30/20at 08:18; Start 03/30/20 at 08:00; Stop 03/30/20 at 11:59 Potassium Chloride (Klor-Con) 40 meq 1X ONCE PO Last administered on 03/30/20at 08:17; Start 03/30/20 at 08:00; Stop 03/30/20 at 08:01; Status DC Active Scripts Active Trandate (Labetalol Hcl) 200 Mg Tablet 200 Mg PO BID Clonidine Hcl 0.2 Mg Tablet 0.2 Mg PO TID Norvasc (Amlodipine Besylate) 10 Mg Tablet 10 Mg PO DAILY Reported Flomax (Tamsulosin Hcl) 0.4 Mg Cap.er.24h 1 Cap PO DAILY Cymbalta (Duloxetine Hcl) 60 Mg Capsule.dr 1 Cap PO DAILY Lipitor (Atorvastatin Calcium) 40 Mg Tablet 1 Tab PO DAILY Omeprazole 40 Mg Capsule.dr 1 Cap PO DAILY Vitals/I & O Vital Sign - Last 24 Hours 03/29/20 03/29/20 03/29/20 03/29/20 09:02 09:03 10:20 10:56 Temp 97.5 97.5 Pulse 75 75 75 66 Resp 16 B/P (MAP) 120/79 120/79 120/79 116/79 (91) Pulse Ox 97 O2 Delivery Room Air 03/29/20 03/29/20 03/29/20 03/29/20 13:40 14:58 19:00 19:49 Temp 97.7 97.8 97.7 97.8 Pulse 66 78 64 Resp 16 18 B/P (MAP) 116/79 113/77 (89) 121/86 (98) Pulse Ox 100 98 O2 Delivery Room Air Room Air Room Air 03/29/20 03/29/20 03/29/20 03/29/20 21:00 21:02 21:02 23:00 Temp 98.3 98.3 Pulse 64 64 64 65 Resp 16 B/P (MAP) 121/86 121/86 121/86 138/87 (104) Pulse Ox 95 O2 Delivery Room Air 03/30/20 03/30/20 03/30/20 03/30/20 03:00 07:00 08:16 08:17 Temp 97.7 97.4 97.7 97.4 Pulse 63 76 85 85 Resp 18 20 B/P (MAP) 137/97 (110) 116/88 (97) Pulse Ox 95 95 O2 Delivery Room Air Room Air 03/30/20 08:17 Pulse 85 Intake and Output 03/29/20 03/29/20 03/30/20 15:00 23:00 07:00 Intake Total 350 ml 200 ml Output Total 100 ml 350 ml 300 ml Balance 250 ml -150 ml -300 ml Justicifation of Admission Dx: Justifications for Admission: Justification of Admission Dx: N/A Chronic Renal Failure: Electrolyte Abnormality FERMIN ARGUETA MD Mar 30, 2020 08:43
[2020-03-30] MEDS ORDERED: MAGN400T44 PO (10:11)
--- NOTE | 2020-03-30 10:13 | SNU/HH DC ---
DISCHARGE WITH HOME HEALTH DISCHARGE INFORMATION: Discharge Date: Mar 30, 2020 Final Diagnosis: Problems Medical Problems: (1) Hypokalemia Status: Acute (2) Seizure disorder Status: Acute Condition on Discharge: Stable CODE STATUS: Code Status: Full HOME HEALTH: Face to Face: I certify this patient is under my care and that I, or a nurse practitioner or physician's assistant county engineer working with me, had a face to face encounter that meets the physician face to face encounter requirements with this patient on 03/30/2020. Medical Complications: CVA, Falls Custodial For: Assess & Educate Safety, Medication Management RN For Eval/Treatment: Yes Physical Therapy For: Evalulation/Treatment Occupational Therapy For: Evaluation/Treatment Home Health Aide For: Self-care SYSTEM AUDITOR For: Community Resources Pt Meets Homebound Status: Unsteady balance w/ amb,, Limited distance walking, Psychological condition POST DISCHARGE ORDERS: Activity Instructions for Disc: No restrictions Weight Bearing Status after Di: No restrictions DIET AFTER DISCHARGE: Regular CHECKS AFTER DISCHARGE: Checks after discharge: Check blood press - daily FOLLOW-UP: PCP to follow Home Health: [facility] DC TO SNF LABS: BMP and Magnesium q14 days TREATMENT/EQUIPMENT ORDERS: Adaptive Equipment Issued: None CERTIFICATION STATEMENT: Certification Statement: Certification Statement: Based on the above finding, I certify that this patient is confined to the home and needs intermittent fdc care, physical therapy and/or speech therapy, or continues to need occupational therapy.~ This patient is under my care, and I have initiated the establishment of the plan of care.~ This patient will be followed by myself or a community physician who will periodically review the plan of care. Home Meds Active Scripts Magnesium Oxide (Magnesium Oxide) 400 Mg Tablet, 1 TAB PO BID for Hypomagnesemia for 30 Days, #60 TAB 0 Refills Prov:DEBI TELLES MD 03/30/20 Labetalol Hcl (TRANDATE) 200 Mg Tablet, 200 MG PO BID, #60 BOTTLE Prov:MYLES MCKINNEY MD 03/02/15 Clonidine Hcl (CLONIDINE HCL) 0.2 Mg Tablet, 0.2 MG PO TID, #90 BOTTLE Prov:MYLES MCKINNEY MD 03/02/15 Amlodipine Besylate (NORVASC) 10 Mg Tablet, 10 MG PO DAILY, #30 BOTTLE Prov:MYLES MCKINNEY MD 7/10/15 Reported Medications Tamsulosin Hcl (FLOMAX) 0.4 Mg Cap.er.24h, 1 CAP PO DAILY, #30 CAP 11 Refills 02/27/15 Duloxetine Hcl (CYMBALTA) 60 Mg Capsule.dr, 1 CAP PO DAILY, #90 CAP 3 Refills 02/27/15 Atorvastatin Calcium (LIPITOR) 40 Mg Tablet, 1 TAB PO DAILY, #30 TAB 5 Refills 02/27/15 Omeprazole (OMEPRAZOLE) 40 Mg Capsule.dr, 1 CAP PO DAILY, #30 CAP 3 Refills 02/27/15 DEBI TELLES MD Mar 30, 2020 10:13
--- NOTE | 2020-03-30 10:18 | PDOC3 ---
Discharge Summary Visit Information Date of Admission: Mar 28, 2020 Date of Discharge: Mar 30, 2020 Admitting Diagnosis: Seizure Final Diagnosis Problems Medical Problems: (1) Hypokalemia Status: Acute (2) Seizure disorder Status: Acute Brief Hospital Course Allergies Allergies Coded Allergies Type Severity Reaction Last Updated Verified lisinopril Allergy Severe ANGIOEDEMA 08/04/15 Yes codeine Allergy Intermediate hives 02/26/15 Yes Vital Signs Vital Signs Date Time Temp Pulse Resp B/P (MAP) Pulse Ox O2 Delivery O2 Flow Rate FiO2 03/30/20 08:17 85 03/30/20 08:10 Room Air 03/30/20 07:00 97.4 20 116/88 (97) 95 97.4 Lab Results Laboratory Tests Test 03/28/20 15:34 03/29/20 07:40 03/29/20 13:30 03/30/20 04:00 White Blood Count 6.8 x10^3/uL (4.0-11.0) 4.7 x10^3/uL (4.0-11.0) Red Blood Count 5.03 x10^6/uL (4.30-5.70) 4.38 x10^6/uL (4.30-5.70) Hemoglobin 16.7 g/dL (13.0-17.5) 14.8 g/dL (13.0-17.5) Hematocrit 47.2 % (39.0-53.0) 41.5 % (39.0-53.0) Mean Corpuscular Volume 94 fL (79-100) 95 fL (79-100) Mean Corpuscular Hemoglobin 33 pg (25-35) 34 pg (25-35) Mean Corpuscular Hemoglobin Concent 35 g/dL (31-37) 36 g/dL (31-37) Red Cell Distribution Width 13.9 % (11.5-14.5) 14.2 % (11.5-14.5) Platelet Count 243 x10^3/uL (140-400) 213 x10^3/uL (140-400) Neutrophils (%) (Auto) 73 % (31-73) 49 % (31-73) Lymphocytes (%) (Auto) 16 % (24-48) 35 % (24-48) Monocytes (%) (Auto) 10 % (0-9) 14 % (0-9) Eosinophils (%) (Auto) 0 % (0-3) 1 % (0-3) Basophils (%) (Auto) 1 % (0-3) 1 % (0-3) Neutrophils # (Auto) 5.0 x10^3/uL (1.8-7.7) 2.3 x10^3/uL (1.8-7.7) Lymphocytes # (Auto) 1.1 x10^3/uL (1.0-4.8) 1.6 x10^3/uL (1.0-4.8) Monocytes # (Auto) 0.7 x10^3/uL (0.0-1.1) 0.6 x10^3/uL (0.0-1.1) Eosinophils # (Auto) 0.0 x10^3/uL (0.0-0.7) 0.1 x10^3/uL (0.0-0.7) Basophils # (Auto) 0.1 x10^3/uL (0.0-0.2) 0.0 x10^3/uL (0.0-0.2) Sodium Level 134 mmol/L (136-145) 139 mmol/L (136-145) 135 mmol/L (136-145) 136 mmol/L (136-145) Potassium Level 2.9 mmol/L (3.5-5.1) 2.9 mmol/L (3.5-5.1) 3.8 mmol/L (3.5-5.1) 3.3 mmol/L (3.5-5.1) Chloride Level 95 mmol/L (98-107) 102 mmol/L (98-107) 103 mmol/L (98-107) 101 mmol/L (98-107) Carbon Dioxide Level 29 mmol/L (21-32) 30 mmol/L (21-32) 25 mmol/L (21-32) 26 mmol/L (21-32) Anion Gap 10 (6-14) 7 (6-14) 7 (6-14) 9 (6-14) Blood Urea Nitrogen 13 mg/dL (8-26) 13 mg/dL (8-26) 12 mg/dL (8-26) 9 mg/dL (8-26) Creatinine 1.2 mg/dL (0.7-1.3) 1.4 mg/dL (0.7-1.3) 1.2 mg/dL (0.7-1.3) 1.1 mg/dL (0.7-1.3) Estimated GFR (Cockcroft-Gault) 75.8 63.4 75.8 83.8 Glucose Level 83 mg/dL (70-99) 95 mg/dL (70-99) 144 mg/dL (70-99) 94 mg/dL (70-99) Calcium Level 9.5 mg/dL (8.5-10.1) 8.4 mg/dL (8.5-10.1) 8.1 mg/dL (8.5-10.1) 8.2 mg/dL (8.5-10.1) Magnesium Level 1.2 mg/dL (1.8-2.4) 1.7 mg/dL (1.8-2.4) 1.5 mg/dL (1.8-2.4) Laboratory Tests Test 03/29/20 13:30 03/30/20 04:00 Sodium Level 135 mmol/L (136-145) 136 mmol/L (136-145) Potassium Level 3.8 mmol/L (3.5-5.1) 3.3 mmol/L (3.5-5.1) Chloride Level 103 mmol/L (98-107) 101 mmol/L (98-107) Carbon Dioxide Level 25 mmol/L (21-32) 26 mmol/L (21-32) Anion Gap 7 (6-14) 9 (6-14) Blood Urea Nitrogen 12 mg/dL (8-26) 9 mg/dL (8-26) Creatinine 1.2 mg/dL (0.7-1.3) 1.1 mg/dL (0.7-1.3) Estimated GFR (Cockcroft-Gault) 75.8 83.8 Glucose Level 144 mg/dL (70-99) 94 mg/dL (70-99) Calcium Level 8.1 mg/dL (8.5-10.1) 8.2 mg/dL (8.5-10.1) Magnesium Level 1.5 mg/dL (1.8-2.4) Brief Hospital Course Mr Garcia is a 55-year-old male with PMHx CVA w/ left hemiparesis leaving him wheelchair-bound and on disability, HTN, HLD, smoker, heavy ETOH use admitted after having 2 seizures 03/28/2020. He has been worked up at including MRI and EEG studies and has never been placed on anticonvulsants. Seen by neurology, noted to be alcohol-related seizures and due to electrolytes. He did not require antiepileptics in the hospital and is not prescribed, he does not want to start an anticonvulsant, that is a reasonable position We see no need to repeat EEG or MRI studies which were already done in the past at . K 2.9, Mag 1.2, admitted for further care. 03/29: Little confused today weak on his left side. No shortness of breath or cough no fevers. Labs slightly improved. No further seizures K improved to 3.3, magnesium still low at 1.5. His strength is improved. He notes he is going to cut back on his drinking as he is started drinking due to a friend's birthday green party. He wishes to go home with [facility] which he states was set up by [facility] previously. Consults: Neurology Problem list: Seizures Hypokalemia Hypomagnesemia CVA w/ left hemiparesis leaving him wheelchair-bound and on disability HTN HLD Smoker Heavy ETOH Greater than 30 minutes spent on d/c home with home health Discharge Information Condition at Discharge: Improved Follow Up: Weeks Disposition/Orders: D/C to Home w/ HH Scheduled Amlodipine Besylate (Norvasc) 10 Mg Tablet, 10 MG PO DAILY, #30 Prescribed by: MYLES MCKINNEY on 03/02/15 1221 Last Action: Continued on 03/28/201832 by TIA HOFFMAN Atorvastatin Calcium (Lipitor) 40 Mg Tablet, 1 TAB PO DAILY, #30 Ref 5 (Reported) Entered as Reported by: SHAE MILES on 02/27/15 0258 Last Action: Continued on 03/28/201832 by TIA HOFFMAN Clonidine Hcl (Clonidine Hcl) 0.2 Mg Tablet, 0.2 MG PO TID, #90 Prescribed by: MYLES MCKINNEY on 03/02/15 1221 Last Action: Continued on 03/28/201832 by TIA HOFFMAN Duloxetine Hcl (Cymbalta) 60 Mg Capsule.dr, 1 CAP PO DAILY, #90 Ref 3 (Reported) Entered as Reported by: SHAE MILES on 02/27/151747 Last Action: Converted on 03/28/201832 by NIAL CASTLE Labetalol Hcl (Trandate) 200 Mg Tablet, 200 MG PO BID, #60 Prescribed by: MYLES MCKINNEY on 03/02/15 1221 Last Action: Continued on 03/28/201832 by NIAL CASTLE Magnesium Oxide (Magnesium Oxide) 400 Mg Tablet, 1 TAB PO BID for Hypomagnesemia for 30 Days, #60 Ref 0 Prescribed by: DEBI TELLES MD on 03/30/20 1011 Omeprazole (Omeprazole) 40 Mg Capsule.dr, 1 CAP PO DAILY, #30 Ref 3 (Reported) Entered as Reported by: SHAE MILES on 02/27/151747 Last Action: Converted on 03/28/201832 by NIAL CASTLE Tamsulosin Hcl (Flomax) 0.4 Mg Cap.er.24h, 1 CAP PO DAILY, #30 Ref 11 (Reported) Entered as Reported by: SHAE MILES on 02/27/151747 Last Action: Continued on 03/28/201832 by NIAL CASTLE Justicifation of Admission Dx: Justifications for Admission: Justification of Admission Dx: N/A Chronic Renal Failure: Electrolyte Abnormality DEBI TELLES MD Mar 30, 2020 10:18
[2020-03-30 11:00] VITALS: BP 91/59
--- NOTE | 2020-03-30 11:40 | NUR ---
SS following up with discharge planning. SS reviewed pt chart and discussed with pt RN. Discharge orders received for home healthcare. SS met with pt and discussed home healthcare. Pt declined home healthcare. Pt stated that he has home care services with [facility]. Pt reported that he does not need any other services at this time but reported that he would discuss with family and notify if he changes his mind. Pt's RN notified.
--- NOTE | 2020-03-30 12:01 | NUR ---
SS following up with discharge planning. SS was notified that pt has had [facility], ; fax [phone]. SS phoned and faxed Discharge orders and referral to [facility]. Pt's RN notified.
--- NOTE | 2020-03-30 13:41 | NUR ---
Discharge: Teaching verbal and written. Reviewed discharge with patient and his caregiver. 1 prescription sent to pharmacy by Dr. Rankin. All belongings with patient. IV removed without complications, catheter tip intact. Patient assisted off of unit via wheelchair accompanied by BEHAVIORAL CONSULTANT and caregiver
== END 2020-03-30 13:05 | disposition home health service (06) | DRG 100 ==
LOC: ER 14:54 → 2 NORTH 16:30
PROVIDERS: ADMIT Internal Medicine; ATTEND Internal Medicine
DX: G40.909 Epilepsy, unspecified, not intractable, without status epilepticus (principal); N17.0 Acute kidney failure with tubular necrosis; I69.354 Hemiplegia and hemiparesis following cerebral infarction affecting left non-dominant side; E87.6 Hypokalemia; E78.00 Pure hypercholesterolemia, unspecified; E78.5 Hyperlipidemia, unspecified; E83.42 Hypomagnesemia; F17.200 Nicotine dependence, unspecified, uncomplicated; G93.89 Other specified disorders of brain; I10 Essential (primary) hypertension; Z96.653 Presence of artificial knee joint, bilateral; N40.0 Benign prostatic hyperplasia without lower urinary tract symptoms; Z82.49 Family history of ischemic heart disease and other diseases of the circulatory system; Z99.3 Dependence on wheelchair
CPT/HCPCS: 36415; 70450; 71045; 80048; 80177; 83735; 85025; 93005; 96365; 99285; J1885; J3411; J3475; J3480; J3490; J7030; G0378